=== PATIENT | male | born 1980 | race Caucasian/White ===

== ENCOUNTER → 2022-09-27 | Outpatient (CLI) | payer SELFPAY ==
[~2022-09-27] MED LIST: AMOX500C2 PO; PRD50T PO; [UNRECOGNIZED DRUG - CODE] PO
== END ==
LOC: RAD 08:51
PROVIDERS: ATTEND Nurse Practitioner Family
DX: M79.661 Pain in right lower leg (principal); E55.9 Vitamin D deficiency, unspecified; E78.2 Mixed hyperlipidemia; R79.89 Other specified abnormal findings of blood chemistry; E78.1 Pure hyperglyceridemia; Z86.16 Personal history of COVID-19; Z53.9 Procedure and treatment not carried out, unspecified reason

== ENCOUNTER → 2022-09-27 | Outpatient (CLI) | payer BC ==
--- NOTE | 2022-09-27 10:13 | Diagnostic Imaging Report ---
PROCEDURE: US right lower extremity venous. TECHNIQUE: Multiple Real-time grayscale images were obtained over the right lower extremity in various projections. Additional spectral analysis and color Doppler Duplex images were also obtained. INDICATION: Leg pain and swelling. FINDINGS: There was good flow and compressibility at all levels and no evidence for a deep venous thrombosis. IMPRESSION: Negative right lower extremity for deep venous thrombosis. Dictated by: Dictated on workstation # [id number]
--- NOTE | 2022-09-27 10:23 | Diagnostic Imaging Report ---
EXAMINATION: CT cardiac calcium score. INDICATION: Hypercholesterolemia. TECHNIQUE/COMPARISON: Routine images of the thorax were obtained using the cardiac calcium score protocol. There are no prior exams available for comparison. FINDINGS: The heart size is at the upper limits of normal. There are no coronary calcifications identified. The ascending aorta is not abnormally dilated. There is no obvious mediastinal or hilar adenopathy. The lungs, where visualized, are clear. The images through the upper abdomen fail to show any sign of an acute abnormality. The bone windows are unremarkable for a fracture or for a destructive lesion of the visualized osseous structures. IMPRESSION: 1. The CT cardiac calcium score is 0. 2. There is no acute cardiopulmonary abnormality identified. Dictated by: Dictated on workstation # [id number]
== END ==
LOC: RAD 08:50
PROVIDERS: ATTEND Nurse Practitioner Family
DX: Z02.4 Encounter for examination for driving license (principal); Z02.89 Encounter for other administrative examinations; E78.49 Other hyperlipidemia; E55.9 Vitamin D deficiency, unspecified; E78.1 Pure hyperglyceridemia; M79.661 Pain in right lower leg; R79.89 Other specified abnormal findings of blood chemistry; Z86.16 Personal history of COVID-19
CPT/HCPCS: 75571